=== PATIENT | male | born 1965 | race Caucasian/White ===

== ENCOUNTER 2019-06-16 17:41 | Emergency (ER) | payer OTHER ==
[~2019-06-16] VITALS: Ht 175.3 cm; Wt 77.4 kg
[2019-06-16 18:18] LABS: BASOPHILS # (AUTO) 0.05 x10^3/uL (0-0.1); BASOPHILS % (AUTO) 0 % (0-1); EOSINOPHILS % (AUTO) 0 % (1-7); LYMPHOCYTES # (AUTO) 0.79 x10^3/uL (1-3.4); LYMPHOCYTES % (AUTO) 7 % (22-44); MD NO; MEAN CORPUSCULAR HEMOGLOBIN 29.9 pg (27.5-34.5); MEAN CORPUSCULAR HGB CONC 33.4 g/dL (33.2-36.2); MEAN CORPUSCULAR VOLUME 89.5 fL (81-97); MEAN PLATELET VOLUME 7.1 fL (7.4-10.4); MONOCYTES # (AUTO) 0.47 x10^3/uL (0.2-0.8); MONOCYTES % (AUTO) 4 % (2-9); NEUTROPHILS # (AUTO) 10.86 x10^3/uL (1.8-6.8); NEUTROPHILS % (AUTO) 89 % (42-75); PLATELET COUNT 330 x10^3/uL (130-400); RED BLOOD COUNT 4.49 x10^6/uL (4.38-5.82); RED CELL DISTRIBUTION WIDTH 13.9 % (9.4-14.8)
[2019-06-16] MEDS ORDERED: HYDROmorphone 1 MG/ML, 1ML INJ ONE ×2 (18:18→19:35)
[2019-06-16] MEDS ORDERED: ONDANSETRON 2MG/ML, 2ML ONE (18:18)
[2019-06-16] MEDS: HYDROmorphone 2 MG/ML, 1ML IVPush PRN ×2 (18:24→19:39)
--- NOTE | 2019-06-16 18:28 | NUR ---
Pt squriming around the gurney d/t abd pain. Pt reports pain, vomiting and diarrhea x8 hours. Pt has hx of bypass and gallbladder removal. PIV placed with blood draw. ERP at bedside. Pt medicated per MAR. Call light within reach. at bedside.
[2019-06-16 18:29] LABS: ALANINE AMINOTRANSFERASE 63 U/L (12-78); ALBUMIN 4.9 g/dL (3.4-5.0); ANION GAP 10 mmol/L (5-15); CALCIUM 10.3 mg/dL (8.5-10.1); CHLORIDE 107 mmol/L (98-107); CREATININE 0.99 mg/dL (0.7-1.3)
[2019-06-16] MEDS ORDERED: SODIUM CHLORIDE FLUSH 10ML SYR IVF ONE (18:30)
[2019-06-16] MEDS ORDERED: ONDANSETRON 2MG/ML, 2ML IVPush ONE (18:30)
[2019-06-16] MEDS ORDERED: SODIUM CHLORIDE 0.9% 1,000ML IVBOLUS ONE (18:30)
[2019-06-16 18:31] LABS: ALKALINE PHOSPHATASE 67 U/L (45-117); BILIRUBIN,TOTAL 1.1 mg/dL (0.2-1.0); TOTAL PROTEIN 7.9 g/dL (6.4-8.2)
[2019-06-16] MEDS ORDERED: OMNIPAQUE 350 MG/ML, 100ML BOTTLE ONE (18:56)
--- NOTE | 2019-06-16 18:58 | NUR ---
Pt returned from imaging. Pt aware of need for urine sample.
[2019-06-16 19:42] VITALS: BP 141/58
[2019-06-16] MEDS ORDERED: PANTOPRAZOLE 40 MG IV IVPush ONE (20:00)
[2019-06-16] MEDS ORDERED: FAMOTIDINE 20 MG/2 ML IVPush ONE (20:00)
--- NOTE | 2019-06-16 20:00 | NUR ---
PT MEDICATED PER EMAR.
[2019-06-16] MEDS ORDERED: FAMOTIDINE 20 MG/2 ML ONE (20:05)
[2019-06-16] MEDS ORDERED: PANTOPRAZOLE 40 MG IV ONE (20:05)
--- NOTE | 2019-06-16 20:11 | NUR ---
PT MEDICATED PER MD JESSE AWARE PT UP FOR RECHECK
[2019-06-16 20:15] LABS: MICROSCOPIC INDICATED
[2019-06-16 20:27] LABS: CULTURE INDICATED? NO
--- NOTE | 2019-06-16 20:40 | NUR ---
ERP at bedside.
[2019-06-16] MEDS ORDERED: SUCRALFATE 1 GM/10 ML UDC PO ONE (21:00)
--- NOTE | 2019-06-16 21:19 | NUR ---
PT MEDICATED PER EMAR. 5 RIGHTS ADDRESSED.
--- NOTE | 2019-06-16 21:29 | NUR ---
Patient/Caregiver given discharge instructions and they have confirmed that they understand the instructions. Patient ambulatory with steady gait.
--- NOTE | 2019-06-16 21:29 | NUR ---
Patient/Caregiver given discharge instructions and they have confirmed that they understand the instructions. Patient ambulatory with steady gait.
== END 2019-06-16 21:31 | disposition home or self-care (01) ==
LOC: EDBD 17:41 → ED 21:25
DX: K29.00 Acute gastritis without bleeding (principal); M79.10 Myalgia, unspecified site; I10 Essential (primary) hypertension; E78.00 Pure hypercholesterolemia, unspecified; Z90.49 Acquired absence of other specified parts of digestive tract
CPT/HCPCS: 36415; 74177; 80053; 81001; 83690; 85025; 96361; 96374; 96375; 96376; 99284; C9113; J1170; J2405; J3490; J7030; Q9967